=== PATIENT | male | born 1940 | race Caucasian/White ===

== ENCOUNTER 2022-02-18 12:26 | Observation (INO) ==
[2022-02-18 12:56] LABS: Basophils % 0.2 %; Eosinophils # 0.3 K/mcL (0.0-0.6); Eosinophils % 2.3 %; Hematocrit 40.4 % (37.5-50.1); Immature Granulocytes % 0.6 % (0-4); Lymphocytes # 1.6 K/mcL (0.6-4.6); Lymphocytes % 13.3 %; Mean Corpuscular HGB Conc 34.7 g/dL (31.6-35.5); Mean Corpuscular Hemoglobin 33.1 pg (28.0-33.3); Mean Corpuscular Volume 95.5 fL (83.0-100.0); Mean Platelet Volume 9.2 fL (9.4-12.4); Monocytes # 0.6 K/mcL (0.0-1.3); Neutrophils # 9.7 K/mcL (1.6-8.9); Platelet Count 214 K/mcL (140-400); Red Blood Count 4.23 M/mcL (4.19-5.50); Red Cell Distribution Width 14.3 % (11.5-14.5); Segmented Neutrophils % 78.6 %; White Blood Count 12.3 K/mcL (4.3-11.1)
[2022-02-18 13:06] LABS: Prothrombin Time 11.3 Seconds (9.4-12.1)
[2022-02-18 13:09] LABS: Activated Partial Thrombo Time 34.6 Seconds (26.0-36.0)
[2022-02-18 13:41] LABS: BUN/Creatinine Ratio 16 (6-26); Blood Urea Nitrogen 20 mg/dL (8-23); Calcium 9.2 mg/dL (8.6-10.3); Carbon Dioxide 22 mEq/L (23-29); Chloride 101 mEq/L (98-107); Glucose 110 mg/dL (70-105); Osmolality,Calculated 279 (280-300); Potassium 3.8 mEq/L (3.5-5.1); Sodium 133 mEq/L (136-145); Troponin I < 0.03 ng/mL (< 0.04)
[2022-02-18] MEDS ORDERED: Ondansetron 4 MG/2 ML VIAL IVP PRN (14:57)
[2022-02-18] MEDS ORDERED: Naloxone 0.4 MG/ML INJ IVP PRN (14:57)
[2022-02-18] MEDS ORDERED: *HR* HYDROcodone/Acet 5/325 mg TABLET PO PRN (14:57)
[2022-02-18] MEDS ORDERED: Acetaminophen 325 MG TABLET PO PRN (14:57)
[2022-02-18] MEDS ORDERED: Nitroglycerin 0.4 MG TAB.SUBL SL PRN (15:02)
[2022-02-18] MEDS ORDERED: *HR* Heparin 5,000 UNIT/ML VIAL SQ SCH (18:00)
[2022-02-18] MEDS: levoFLOXacin 750 MG TABLET PO SCH (18:07)
[2022-02-18] MEDS ORDERED: *HR* Heparin 5,000 UNIT/ML VIAL IVP PRN ×2 (18:44)
[2022-02-18] MEDS ORDERED: *HR* Heparin 5,000 UNIT/ML VIAL IVP ONE (18:44)
[2022-02-18] MEDS: Heparin 25,000UNIT/250ML 1/2NS 25,000 UNIT/250 ML IV.SOLN IVC SCH (19:37)
[2022-02-18 20:38] LABS: Hematocrit 40.4 % (37.5-50.1); Hemoglobin 14.1 g/dL (12.9-16.9); Mean Corpuscular HGB Conc 34.9 g/dL (31.6-35.5); Mean Corpuscular Hemoglobin 33.5 pg (28.0-33.3); Mean Platelet Volume 9.3 fL (9.4-12.4); Platelet Count 233 K/mcL (140-400); Red Blood Count 4.21 M/mcL (4.19-5.50); Red Cell Distribution Width 14.4 % (11.5-14.5); White Blood Count 13.4 K/mcL (4.3-11.1)
[2022-02-18 20:45] LABS: Heparin anti-factor XA UFH 0.88 IU/mL (0.30-0.70)
[2022-02-18 20:46] LABS: INR 1.1; Prothrombin Time 11.8 Seconds (9.4-12.1)
[2022-02-19 01:58] LABS: Albumin/Globulin Ratio 1.9 (1.1-2.2); Bilirubin,Total 0.5 mg/dL (0.3-1.0); Calcium 8.7 mg/dL (8.6-10.3); Globulin 2.1 g/dL (2.4-3.5); Magnesium 1.9 mg/dL (1.6-2.6); Phosphorous 3.1 mg/dL (2.7-4.5); Potassium 4.1 mEq/L (3.5-5.1); Total Protein 6.1 g/dL (6.4-8.9)
[2022-02-19] MEDS: Folic Acid 1 MG TABLET PO SCH (09:02)
[2022-02-19] MEDS: Aspirin Enteric Coated 81 MG Tablet PO SCH (09:02)
[2022-02-19] MEDS: Heparin 25,000UNIT/250ML 1/2NS 25,000 UNIT/250 ML IV.SOLN IVC SCH (19:09)
[2022-02-20] MEDS ORDERED: *HR* FentaNYL (PF) 100 MCG/2 ML VIAL ONE (08:36)
[2022-02-20] MEDS ORDERED: 0.9 % Sodium Chloride 2,000 ML ONE (08:37)
[2022-02-20] MEDS ORDERED: Heparin 1,000 UNITS/500 mL 500 ML ONE (08:37)
[2022-02-20] MEDS ORDERED: Iopamidol - 370 200 ML INFUS..BTL ONE (08:37)
[2022-02-20] MEDS ORDERED: Nitroglycerin 1,000 MCG/5 ML VIAL IV ONE (08:37)
[2022-02-20] MEDS ORDERED: *HR* Midazolam HCl 2 MG/2 ML VIAL ONE (08:37)
[2022-02-20] MEDS ORDERED: *HR* Heparin 10,000 UNIT/10 ML VIAL ONE (08:37)
[2022-02-20] MEDS: Folic Acid 1 MG TABLET PO SCH (08:38)
[2022-02-20] MEDS: Aspirin Enteric Coated 81 MG Tablet PO SCH (08:38)
[2022-02-20] MEDS ORDERED: Isosorbide MONOnitrate (24 HR) 30 MG TAB.ER.24H PO SCH (09:00)
[2022-02-20 15:46] VITALS: BP 112/65; PULSE 73; TEMP 97.8
[2022-02-20] MEDS: levoFLOXacin 750 MG TABLET PO SCH (16:24)
[2022-02-20 16:50] VITALS: O2SAT 96
[2022-02-21] MEDS ORDERED: Isosorbide MONOnitrate (24 HR) 60 MG TAB.ER.24H PO SCH (09:00)
== END 2022-02-20 18:00 | disposition home or self-care (01) ==
LOC: 3BNU 12:26 → EMEROOARM 12:26 → SUATTDRO 14:29 → 3BNU 15:38
PROVIDERS: ADMIT Internal Medicine; ATTEND Registered Nurse